=== PATIENT | female | born 1990 | race Caucasian/White ===

== ENCOUNTER → 2018-09-03 | Outpatient (CLI) | payer BC | END | disposition home or self-care (01) | LOC: RAH 08:46 | PROVIDERS: ATTEND Specialist | DX: N60.01 Solitary cyst of right breast (principal) | CPT/HCPCS: 76641 ==

== ENCOUNTER 2019-08-05 05:22 | Inpatient (IN) | payer BC ==
[~2019-08-05] VITALS: Ht 165.1 cm; Wt 73.5 kg
[2019-08-05] MEDS ORDERED: LACTATED RINGERS 1000ML 1,000 ML IV PRN (06:31)
[2019-08-05 06:34] VITALS: BP 120/72
[2019-08-05] MEDS ORDERED: OXYTOCIN 10 USP UNITS/ML 20 UNIT in LACTATED RINGERS 1000ML 1,000 ML IV SCH (06:45)
[2019-08-05 06:53] LABS: APPEARANCE,URINE CLEAR (CLEAR); BILIRUBIN,URINE NEGATIVE (NEGATIVE); COLOR,URINE YELLOW (YELLOW); GLUCOSE, URINE (UA) NEGATIVE (NEGATIVE); KETONES,URINE NEGATIVE (NEGATIVE); LEUKOCYTE ESTERASE ,URINE NEGATIVE (NEGATIVE); NITRATE,URINE NEGATIVE (NEGATIVE); OCCULT BLOOD,URINE NEGATIVE (NEGATIVE); PROTEIN,URINE NEGATIVE (NEGATIVE); UROBILINOGEN,URINE 0.2 mg/dL (0.2-1.0)
[2019-08-05] MEDS ORDERED: OXYTOCIN-LR 20 UNITS/1000 ML 1,000 ML IV ONE (07:52)
[2019-08-05 08:06] LABS: MEAN CORPUSCULAR HEMOGLOBIN 29.2 pg (27.0-33.0); MEAN CORPUSCULAR HGB CONC 32.7 g/dL (32.0-36.0); MEAN CORPUSCULAR VOLUME 89.2 fL (79-99); RED BLOOD CELL COUNT(AUTO) 3.7 MIL/uL (4.00-5.50); RED CELL DISTRIBUTION WIDTH 14.2 % (11.0-15.5); WHITE BLOOD COUNT (AUTO) 11.5 K/uL (4.8-10.8)
[2019-08-05] MEDS ORDERED: NALOXONE HCL 0.4 MG/1 ML ML IV PRN (09:15)
[2019-08-05] MEDS ORDERED: LACTATED RINGERS 500 ML 500 ML IV PRN (09:15)
[2019-08-05] MEDS ORDERED: EPHEDRINE SULFATE 50 MG/ML AMPULE IVP PRN (09:15)
[2019-08-05] MEDS ORDERED: ROPIVACAINE 0.2% 100ML VIAL 100 ML EP SCH (09:15)
[2019-08-05] MEDS ORDERED: ACETAMINOPHEN-CODEINE 300/30MG TAB PO PRN (12:00)
[2019-08-05] MEDS ORDERED: WITCH HAZEL 1 PAD TP PRN (12:00)
[2019-08-05] MEDS ORDERED: ACETAMINOPHEN 325 MG TAB PO PRN (12:00)
[2019-08-05] MEDS ORDERED: LANOLIN 30GM OINTMENT TP PRN (12:00)
[2019-08-05] MEDS ORDERED: DIPH,PERTUSS(ACELL),TET VAC/PF 0.5 ML VIAL IM PRN (12:00)
[2019-08-05] MEDS ORDERED: BENZOCAINE/LANOLIN/ALOE VERA 60 ML AEROSOL TP PRN (12:00)
[2019-08-05] MEDS ORDERED: MEASLES/MUMPS/RUBELLA VACCINE, LIVE 0.5 ML/VIAL SQ PRN (12:00)
[2019-08-05] MEDS ORDERED: OXYTOCIN-LR 20 UNITS/1000 ML 1,000 ML IV SCH (12:00)
[2019-08-05 14:16] VITALS: BP 131/64
[2019-08-05] MEDS ORDERED: PREN-154 PO (14:33)
[2019-08-05] MEDS ORDERED: MELA10CA2 PO (14:33)
[2019-08-05] MEDS ORDERED: FLUO20CA30 PO (14:33)
[2019-08-05] MEDS: IBUPROFEN 600 MG TABLET PO PRN (14:41)
[2019-08-05 16:35] VITALS: BP 114/57
[2019-08-05 19:22] VITALS: BP 114/66
[2019-08-05] MEDS: DOCUSATE SODIUM 100 MG CAP PO SCH (20:51)
[2019-08-05 23:32] VITALS: BP 129/61
[2019-08-06 03:38] VITALS: BP 122/69
[2019-08-06 05:36] LABS: HEMATOCRIT 37.1 % (36-48); MEAN CORPUSCULAR HEMOGLOBIN 29.2 pg (27.0-33.0); MEAN CORPUSCULAR HGB CONC 32.1 g/dL (32.0-36.0); MEAN CORPUSCULAR VOLUME 91.2 fL (79-99); RED BLOOD CELL COUNT(AUTO) 4.07 MIL/uL (4.00-5.50); RED CELL DISTRIBUTION WIDTH 14.2 % (11.0-15.5); WHITE BLOOD COUNT (AUTO) 15.4 K/uL (4.8-10.8)
[2019-08-06] MEDS: IBUPROFEN 600 MG TABLET PO PRN (08:08)
[2019-08-06] MEDS: DOCUSATE SODIUM 100 MG CAP PO SCH (08:08)
[2019-08-06] MEDS ORDERED: FLUOXETINE HCL 20 MG CAPSULE PO SCH (09:00)
[2019-08-06 09:11] LABS: HEPATITIS Bs ANTIGEN SCREEN P Negative (Negative)
[2019-08-06 11:04] VITALS: BP 123/65
--- NOTE | 2019-08-06 12:53 | NUR ---
HX of depression on [address] met with pt and Samir Hobbs [phone] This is second daughter for couple. They have a 3yro and NB Isai Quick. reports he is a [employer] programmer analyst and has been transferred to [facility] in August so they will be moving soon. Pt's mother is in town to help with move and recovery, off for 12 weeks. Couple has car seat and basic items for baby. Dr Menendez will follow baby after dc. 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 had different job, pt was home alone, had trouble with breast feeding baby, pt felt very alone, no family support. Pt reports it lasted a few months. Pt never sought help and states she just powered through it. In Feb 2019, pt was dx with depression by her PCP and was started on [address]. Pt was under PCP on OB care, denies any ideations or suicidal attempts. states he has taken time off to be with and has pt's mother with them, so things will be better this time. Pt and encouraged to contact PCP or OB if there are any changes in mood or behaviors of pt. voiced understanding and willingness to seek help and assist pt as needed. Pt denies any hx of abuse, domestic violence, legal or substance abuse issues.
--- NOTE | 2019-08-06 13:20 | NUR ---
DISCHARGE PT LEFT UNIT VIA WHEELCHAIR, WITH BABY IN ARMS, ACCOMPANIED BY SIGNIFICANT OTHER. DENIED PAIN AND HAD NO COMPLAINTS. BABY STRAPPED IN CAR SEAT. PT AND BABY TRANSPORTED BY PERSONAL VEHICLE.
[2019-08-06] MEDS ORDERED: **HM**(Melatonin 10 MG PO PRN (21:00)
== END 2019-08-06 13:20 | disposition home or self-care (01) | DRG 807 ==
LOC: LDH 05:22 → WSH 14:15 → PREOBSVTOIN 08-20 05:22
PROVIDERS: ADMIT Obstetrics & Gynecology; ATTEND Obstetrics & Gynecology
PROC: 10E0XZZ Delivery of Products of Conception, External Approach (ICD-10-PCS; principal; 2019-08-05)
PROC: 0HQ9XZZ Repair Perineum Skin, External Approach (ICD-10-PCS; 2019-08-05)
PROC: 10907ZC Drainage of Amniotic Fluid, Therapeutic from Products of Conception, Via Natural or Artificial Opening (ICD-10-PCS; 2019-08-05)
PROC: 3E0234Z Introduction of Serum, Toxoid and Vaccine into Muscle, Percutaneous Approach (ICD-10-PCS; 2019-08-05)
PROC: 3E0134Z Introduction of Serum, Toxoid and Vaccine into Subcutaneous Tissue, Percutaneous Approach (ICD-10-PCS; 2019-08-05)
PROC: 3E0R3BZ Introduction of Anesthetic Agent into Spinal Canal, Percutaneous Approach (ICD-10-PCS; 2019-08-05)
PROC: 00HU33Z Insertion of Infusion Device into Spinal Canal, Percutaneous Approach (ICD-10-PCS; 2019-08-05)
DX: O69.81X0 Labor and delivery complicated by cord around neck, without compression, not applicable or unspecified (principal); Z37.0 Single live birth; O70.0 First degree perineal laceration during delivery; Z23 Encounter for immunization; Z3A.38 38 weeks gestation of pregnancy
CPT/HCPCS: 36415; 81003; 85027; 86592; 86850; 86900; 86901; 87340; A4314; G0378; J2590; J2795